=== PATIENT | female | born 1965 | race Caucasian/White ===

== ENCOUNTER 2019-05-25 17:22 | Emergency (ER) | payer OTHER, MEDICAID ==
[~2019-05-25] VITALS: Ht 154.9 cm; Wt 80.7 kg
[2019-05-25 17:39] VITALS: BP_SYST 138
--- NOTE | 2019-05-25 17:50 | NUR ---
Patient triaged and placed in waiting room. VSS and patient appears in no acute distress at this time. Awaiting available bed, and MD notified of need for MSE.
--- NOTE | 2019-05-25 18:48 | NUR ---
PATIENT TO ER #[id number] AT [id number]
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
--- NOTE | 2019-05-25 18:55 | NUR ---
ER Dr. Summers at bedside examining patient.
[2019-05-25 19:26] VITALS: BP_SYST 135
--- NOTE | 2019-05-25 19:26 | NUR ---
Patient given written and verbal discharge instructions and verbalizes understanding. ER Dr. Summers discussed with patient the results and treatment provided. Patient in stable condition. ID arm band removed. Rx of [place] and Neosporin given. Patient educated on pain management and to follow up with PMD. Pain Scale 0/10. Opportunity for questions provided and answered. Medication side effect fact sheet provided.
[2019-05-25] MEDS ORDERED: BACITRACIN 1 GM OINT TP ONE (19:30)
== END 2019-05-25 19:26 | disposition home or self-care (01) ==
LOC: SED 17:22
DX: S60.211A Contusion of right wrist, initial encounter (principal); S50.11XA Contusion of right forearm, initial encounter; S50.812A Abrasion of left forearm, initial encounter; I10 Essential (primary) hypertension; E11.9 Type 2 diabetes mellitus without complications; E03.9 Hypothyroidism, unspecified; Z88.0 Allergy status to penicillin; V43.52XA Car driver injured in collision with other type car in traffic accident, initial encounter; Y93.89 Activity, other specified; Y92.89 Other specified places as the place of occurrence of the external cause; Y99.8 Other external cause status
CPT/HCPCS: 99283